=== PATIENT | male | born 1950 | race Caucasian/White ===

== ENCOUNTER 2021-12-20 11:10 | Emergency (ER) | payer MEDICARE, OTHER ==
[~2021-12-20] VITALS: Ht 177.8 cm; Wt 113.4 kg
[~2021-12-20 11:10] MED LIST: ALLO100T PO; ASPI-807 PO; ATOR40TA PO; CITA20TA16 PO; FURO-145 PO; LORA10CA PO; LOSA25TA27 PO; OMEG500C3 PO; [UNRECOGNIZED DRUG - CODE]
--- NOTE | 2021-12-20 11:29 | NUR ---
To ER bed 8, bibs from home"Feeling Like Crap last couple weeks- chest cold,GAMBLE NO appetite, weak", aaox3, breathing even and non labored, connected to monitor, awaiting md willard
[2021-12-20] MEDS ORDERED: ACETAMINOPHEN ES 500 MG TABLET ONE (11:52)
[2021-12-20] MEDS ORDERED: ACETAMINOPHEN 650 MG/SUPP.RECT RC ONE (12:00)
--- NOTE | 2021-12-20 12:03 | NUR ---
COVID AND FLU SWABS DONE AND SENT TO LAB
[2021-12-20 12:11] LABS: BASOPHILS % (AUTO) 0.6 % (0.0-2.0); EOSINOPHILS % (AUTO) 1.4 % (0.0-6.0); HEMATOCRIT 42 % (39-51); HEMOGLOBIN 14.3 g/dL (13.5-17.5); LYMPHOCYTES # (AUTO) 1.5 K/uL (0.8-4.8); LYMPHOCYTES % (AUTO) 25.7 % (20.0-44.0); MEAN CORPUSCULAR HGB CONC 34 g/dl (31.0-36.0); MEAN CORPUSCULAR VOLUME 88 fL (80-96); MONOCYTES # (AUTO) 0.8 K/uL (0.1-1.30); MONOCYTES % (AUTO) 13.4 % (2.0-12.0); NEUTROPHILS # (AUTO) 3.4 K/uL (1.8-8.9); NEUTROPHILS % (AUTO) 58.9 % (43.0-81.0); PLATELET COUNT (AUTO) 233 K/uL (150-450); RED BLOOD CELL COUNT(AUTO) 4.83 MIL/uL (4.5-6.0); WHITE BLOOD COUNT (AUTO) 5.8 K/uL (4.3-11.0)
[2021-12-20 12:22] LABS: CALCIUM, SERUM 8.9 mg/dL (8.5-10.1); CREATININE 1.3 mg/dL (0.6-1.3); POTASSIUM 4.3 mmol/L (3.5-5.1)
[2021-12-20] MEDS ORDERED: ACETAMINOPHEN ES 500 MG TABLET PO ONE (12:30)
[2021-12-20 12:35] LABS: BILIRUBIN,DIRECT 0.2 mg/dL (0.0-0.2); BILIRUBIN,TOTAL 0.9 mg/dL (0.2-1.0); TOTAL PROTEIN, SERUM 6.9 g/dL (6.4-8.2)
--- NOTE | 2021-12-20 12:55 | NUR ---
URINE COLLECTED AND SENT TO LAB
[2021-12-20] MEDS ORDERED: AZIT250T PO ×2 (13:08→13:19)
--- NOTE | 2021-12-20 13:31 | NUR ---
IV removed. Catheter intact and site benign. Pressure and 4x4 applied to site. No bleeding noted.Patient discharged to home in stable condition. Written and verbal after care instructions given. Patient verbalizes understanding of instruction.
[2021-12-20 13:32] VITALS: BP 118/62
[2021-12-20 15:05] LABS: BILIRUBIN,URINE NEGATIVE (NEGATIVE); COLOR,URINE YELLOW (YELLOW); LEUKOCYTE ESTERASE ,URINE NEGATIVE (NEGATIVE); NITRITE, URINE NEGATIVE (NEGATIVE); PROTEIN,URINE NEGATIVE (NEGATIVE); UGLUCOSE NEGATIVE (NEGATIVE); UROBILINOGEN,URINE 0.2 EU/dL (0.2)
== END 2021-12-20 13:32 | disposition home or self-care (01) ==
LOC: ER 11:12
DX: J40 Bronchitis, not specified as acute or chronic (principal); B34.9 Viral infection, unspecified; Z20.822 Contact with and (suspected) exposure to COVID-19; Z95.1 Presence of aortocoronary bypass graft; E66.01 Morbid (severe) obesity due to excess calories; Z68.35 Body mass index [BMI] 35.0-35.9, adult; I25.10 Atherosclerotic heart disease of native coronary artery without angina pectoris; E11.9 Type 2 diabetes mellitus without complications; Z79.82 Long term (current) use of aspirin; Z79.899 Other long term (current) drug therapy; Z88.8 Allergy status to other drugs, medicaments and biological substances; I10 Essential (primary) hypertension; R94.31 Abnormal electrocardiogram [ECG] [EKG]
CPT/HCPCS: 36415; 71045-TC; 80048-TC; 80076-TC; 83880; 85025-TC; C9803

== ENCOUNTER 2022-12-19 14:54 | Emergency (ER) | payer MEDICARE, OTHER ==
[~2022-12-19] VITALS: Ht 180.3 cm; Wt 120.2 kg
[~2022-12-19 14:54] MED LIST changes: +AZIT250T PO
--- NOTE | 2022-12-19 15:05 | NUR ---
R WRIST PAIN S/P MECHANICAL GLF AT 1100. DENIES HEAD TRAUMA.
--- NOTE | 2022-12-19 16:19 | NUR ---
JANE LEAVITT AT BEDSIDE FOR EVAL.
[2022-12-19] MEDS ORDERED: IBUPROFEN 400 MG TABLET PO ONE (16:30)
[2022-12-19] MEDS ORDERED: IBUPROFEN 400 MG TABLET ONE (16:58)
--- NOTE | 2022-12-19 17:16 | NUR ---
Patient discharged to home in stable condition. Written and verbal after care instructions given. Patient verbalizes understanding of instruction.
[2022-12-19 17:17] VITALS: BP 138/81
== END 2022-12-19 17:17 | disposition home or self-care (01) ==
LOC: ER 15:07
DX: S62.114A Nondisplaced fracture of triquetrum [cuneiform] bone, right wrist, initial encounter for closed fracture (principal); S62.001A Unspecified fracture of navicular [scaphoid] bone of right wrist, initial encounter for closed fracture; I10 Essential (primary) hypertension; E11.9 Type 2 diabetes mellitus without complications; Z88.8 Allergy status to other drugs, medicaments and biological substances; Z79.899 Other long term (current) drug therapy; W01.0XXA Fall on same level from slipping, tripping and stumbling without subsequent striking against object, initial encounter; Y93.01 Activity, walking, marching and hiking; Y92.89 Other specified places as the place of occurrence of the external cause; Y99.8 Other external cause status
CPT/HCPCS: 73110

== ENCOUNTER 2023-02-09 05:56 | Emergency (ER) | payer MEDICARE, OTHER ==
[~2023-02-09] VITALS: Ht 180.3 cm; Wt 122.5 kg
--- NOTE | 2023-02-09 06:30 | NUR ---
BIBWIFE. WORSENING BILAT FEET SWELLING X 1 WEEK.
--- NOTE | 2023-02-09 07:05 | NUR ---
EKG DONE AT BEDSIDE
--- NOTE | 2023-02-09 07:07 | NUR ---
X-RAY AT BEDSIDE
--- NOTE | 2023-02-09 07:11 | NUR ---
20G IV STARTED ON R AC. BLOOD COLLECTED SENT TO LAB
[2023-02-09 07:27] LABS: BASOPHILS % (AUTO) 0.6 % (0.0-2.0); EOSINOPHILS % (AUTO) 6.6 % (0.0-6.0); HEMATOCRIT 41 % (39-51); HEMOGLOBIN 13.5 g/dL (13.5-17.5); LYMPHOCYTES % (AUTO) 20.6 % (20.0-44.0); MEAN CORPUSCULAR HGB CONC 33 g/dl (31.0-36.0); MEAN CORPUSCULAR VOLUME 89 fL (80-96); MONOCYTES # (AUTO) 0.6 K/uL (0.1-1.30); MONOCYTES % (AUTO) 12.7 % (2.0-12.0); NEUTROPHILS # (AUTO) 2.9 K/uL (1.8-8.9); NEUTROPHILS % (AUTO) 59.5 % (43.0-81.0); PLATELET COUNT (AUTO) 211 K/uL (150-450); RED BLOOD CELL COUNT(AUTO) 4.61 MIL/uL (4.5-6.0); WHITE BLOOD COUNT (AUTO) 4.9 K/uL (4.3-11.0)
[2023-02-09 07:32] LABS: CALCIUM, SERUM 9.2 mg/dL (8.5-10.1); CARBON DIOXIDE 26 mmol/L (21-32); CHLORIDE 107 mmol/L (98-107); CREATININE 1.2 mg/dL (0.6-1.3); GLUCOSE 139 mg/dL (74-106); POTASSIUM 4.2 mmol/L (3.5-5.1); SODIUM SERUM 141 mmol/L (136-145); UREA NITROGEN, BLOOD 19 mg/dL (7-18)
[2023-02-09 07:53] LABS: ALANINE AMINOTRANSFERASE 28 U/L (12-78); ALBUMIN 3.3 g/dL (3.4-5.0); ALKALINE PHOSPHATASE 56 U/L (46-116); ASPARTATE AMINOTRANSFERASE 15 U/L (15-37); BILIRUBIN,DIRECT 0.1 mg/dL (0.0-0.2); BILIRUBIN,TOTAL 0.7 mg/dL (0.2-1.0); TOTAL PROTEIN, SERUM 6.9 g/dL (6.4-8.2)
[2023-02-09] MEDS ORDERED: FURO20TA4 PO (09:46)
--- NOTE | 2023-02-09 09:58 | NUR ---
IV removed. Catheter intact and site benign. Pressure and 4x4 applied to site. No bleeding noted.
--- NOTE | 2023-02-09 09:58 | NUR ---
Patient discharged to home in stable condition. Written and verbal after care instructions given. Patient verbalizes understanding of instruction.
[2023-02-09 10:00] VITALS: BP 121/71; TEMP 98.1
== END 2023-02-09 10:00 | disposition home or self-care (01) ==
LOC: ER 06:05
DX: R60.0 Localized edema (principal); I10 Essential (primary) hypertension; Z95.1 Presence of aortocoronary bypass graft; Z91.018 Allergy to other foods; Z88.8 Allergy status to other drugs, medicaments and biological substances; Z79.899 Other long term (current) drug therapy
CPT/HCPCS: 36415; 71045-TC; 80048-TC; 80076-TC; 83880; 84484-TC; 85025-TC; 93970-TC